=== PATIENT | male | born 1945 | race Caucasian/White ===

== ENCOUNTER 2016-10-08 14:56 | Emergency (ER) | payer OTHER ==
--- NOTE | 2016-10-08 14:46 | DIAGNOSTIC IMAGING REPORT ---
PROCEDURE: XR CHEST 2 VIEW INDICATION: COUGH TECHNIQUE: PA and lateral views. COMPARISON: None. FINDINGS: Massive right pleural effusion with right to left shift of the mediastinum. The left lung is clear. Heart size is normal. IMPRESSION: 1. Massive right pleural effusion with right to left shift of the mediastinum. 2. Results were called to Dr. Gomes and Dr. Lawson
--- NOTE | 2016-10-08 19:07 | DIAGNOSTIC IMAGING REPORT ---
PROCEDURE: CT THORAX WITH CONTRAST INDICATION: Right pleural effusion. TECHNIQUE: 125 ml of Isovue 300 was injected intravenously and axial images were obtained of the chest with coronal and sagittal reformations. COMPARISON: Chest x-ray 10/08/2016. FINDINGS: Right lung collapse with minor aeration of the right lung centrally and pleural effusion filling the entire right hemithorax. Small left pleural calcifications. Left lung is clear. No adenopathy. Mild atherosclerosis of the aorta. Coronary atherosclerosis. Heart size is normal. Visualized upper abdomen is unremarkable. Moderate degenerative changes of the spine. IMPRESSION: 1. Large right pleural effusion with soft total collapse of the right lung. No obvious central mass. Recommend repeat CT scan following complete thoracentesis 2. Small calcified left pleural plaques raising the possibility of asbestosis. 3. Results discussed with Dr. Lawson
--- NOTE | 2016-10-08 20:38 | ED ORDER SUMMARY ---
..... Patient: AMANDA WALSH OrderSheet [facility] VisitID: [id number] [place] [address] 71y, M Registration Date/Time: 10/08/2016 ORDER SHEET Weight: 83.9 kg Allergies: No Known Drug Allergy GENERAL ORDERS: Chest 1V Urgent (15:10/08/2016 Calderon Tineo) (Ack 15:11 LMuller) (Cancelled: Verbal per Gcdpqnhuk15:14 LMuller) Thread Puller (Continuous) (Respiratory Distress) (15:10/08/2016 Calderon Tineo) (Ack 15:11 LMuller) (15:22 CHernandez R.N.) CBC w Diff Urgent (15:10/08/2016 Calderon Tineo) (Ack 15:11 LMuller) (15:22 Nitishnandez R.N.) CMP Urgent (15:10/08/2016 Calderon Tineo) (Ack 15:11 LMuller) (15:22 CHernandez R.N.) PT with INR Urgent (15:10/08/2016 Calderon Tineo) (Ack 15:11 LMuller) (15:22 Nitishnandez R.N.) PTT Urgent (15:10/08/2016 Calderon Tineo) (Ack 15:11 LMuller) (15:22 Nitishnandez R.N.) Troponin-I Urgent (15:10/08/2016 Calderon Tineo) (Ack 15:11 LMuller) (15:22 Nitishnandez R.N.) BNP Urgent (15:10/08/2016 Calderon Tineo) (Ack 15:11 LMuller) (15:22 Nitishnandez R.N.) Pulse oximeter (15:10/08/2016 Calderon Tineo) (Ack 15:11 LMuller) (15:22 CHernandez R.N.) Culture, Body Fluid (Body Fluid) (clear brown) (right thorax) Urgent (17:30 10/08/2016 Calderon Tineo) (17:32 LMuller) (Cancelled: Duplicate Order17:35 LMuller) Body Fluid Cell Count Urgent (17:31 10/08/2016 Calderon Tineo) (17:32 LMuller) (Cancelled: Duplicate Order17:35 LMuller) Body Fluid Glucose Urgent (17:10/08/2016 Calderon Tineo) (17:32 LMuller) (Cancelled: Duplicate Order17:35 LMuller) Body Fluid LDH Urgent (17:10/08/2016 Calderon Tineo) (17:32 LMuller) (Cancelled: Duplicate Order17:35 LMuller) Body Fluid Protein Urgent (17:31 10/08/2016 Calderon Tineo) (17:32 LMuller) (Cancelled: Duplicate Order17:35 LMuller) CT Thorax w Cont (No) (gfr > 60) Urgent (17:32 10/08/2016 Calderon Tineo) (Ack 17:36 LMuller) (18:51 MCampbell) - (fluid microscopy for crystals. right thorax body fluid. brown clear.) (17:34 10/08/2016 Calderon Tineo) (Cancelled: Verbal per Orxryupfc11:43 LMuller) - (body fluid choleterol and triglyceride level. once now. right pleural effusion) (20:03 10/08/2016 Calderon Tineo) - (cytology on thoracentesis, right) (20:41 10/08/2016 Calderon Tineo) MEDICATION ORDERS: IV FLUIDS: IV NS : initial bolus none -, then none - for X1 (NOW) (15:09 10/08/2016 Calderon Tineo) (Ack 15:22 Luis R.NRenee) (15:27 Luis R.NRenee) ORDER SHEET NOTES: [Electronically signed by Anirudh Lawson Dr. (02:26 10/15/2016)] [Electronically signed by Sho Messer R.N. (12:59 10/16/2016)] [Electronically locked/signed by Sho Messer R.N. (12:59 10/16/2016)]
--- NOTE | 2016-10-08 20:38 | ED NURSING NOTES ---
Clinical Report - Nurses [facility] [place] [address] 10/08/2016 14:57 Patient: AMANDA WALSH TRIAGE Triage time 15:05. Acuity: LEVEL 2. Chief Complaint: SHORTNESS OF BREATH and DIFFICULTY BREATHING. --15:16 Deshaun Goetz R.N. 15:04 10/08/16. BP: 140/84. HR: 87. RR: 25. O2 saturation: 98%. Temp: 98.2 F. Pain level now: 0/10. --15:16 Deshaun Goetz R.N. Weight: 83.9 kg. Height/Length: 73 inches. BMI: 24.4. --15:15 Deshaun Goetz R.N. Medications TORO. --15:09 Deshaun Goetz R.N. Tamsulosin HCl Oral. --15:10 Deshaun Goetz R.N. ProAir HFA Inhalation. --15:10 Deshaun Goetz R.N. Albuterol Sulfate HFA Inhalation. --15:10 Deshaun Goetz R.N. Medication/allergy information source: the patient. --15:16 Deshaun Goetz R.N. Allergies No Known Drug Allergy. --15:08 Deshaun Goetz R.N. History Historian: patient. ( Increasing SOB, denies chest pain. Productive cough with yellow sputum in the last month. Went to see his PCP today and was sent to ER for CXR.). Onset. (months ago). He has had a cough productive of scant amounts of yellow sputum (months ago). Treatment MATH INSTRUCTOR: (INHALER). SURGERY HX: Right lower extremity fracture repair. SOCIAL HX: Smoker- current status unknown. Occasional alcohol use; consumes one beer occasionally. No infectious disease exposure. --15:16 Deshaun Goetz R.N. Arrived by private vehicle. --16:03 Deshaun Goetz R.N. PROBLEMS: Prostate Cancer. --15:12 Deshaun Goetz R.N. Interventions ID band on patient. To room. --15:16 Deshaun Goetz R.N. PHYSICAL ASSESSMENT Ambulatory to room. GENERAL / NEURO / PSYCH: Alert. Oriented X 4. Appears in no acute distress. HEENT: Mucous membranes are pink. RESPIRATORY: Moderate respiratory distress. The patient can speak in full sentences. Mild intercostal accessory muscle use. Cough productive of scant amounts of yellow sputum. Chest nontender. Decreased breath sounds in the right lung base anteriorly and posteriorly and mid-lung anteriorly and posteriorly. CVS: Normal sinus rhythm noted. Capillary refill less than 2 seconds. GI / : Abdomen soft and nontender. Bowel sounds within normal limits. SKIN: Skin is warm and dry. Normal skin turgor. --15:19 Deshaun Goetz R.N. NURSING PROGRESS NOTES 15:16 10/08/2016 Site #1 started via IV in the left antecubital space with an 18g angiocath; one attempt. Blood drawn: dick set. Saline lock flushed with 10 mL saline. --15:21 Deshaun Goetz R.N. plate straightener, pulse oximeter and NIBP monitor placed on patient; exhibition organiser- Lead II; monitor alarms on. Patient ID band checked: patient confirmed. Blood samples drawn from the left antecubital space with Vacutainer 18g by nurse: dick set: blood culture. Line flushed with 10 mL normal saline post blood draw. Patient gowned. Head of bed elevated. Reassurance given to the patient. Patient ID band checked for patient name and birthdate: patient confirmed. Instructions provided to collect clean catch urine and patient verbalized understanding urine collected with return of yellow-colored raquel-colored urine; sample sent to lab for urinalysis. Specimen labeled in the presence of the patient. Patient identifiers checked. Call light placed in reach. Side rails up x 1. Bed placed in lowest position. Brakes of bed on. Patient ready for evaluation- chart flagged and ED physician notified. --15:21 Deshaun Goetz R.N. 15:27 10/08/2016 Started IV Fluids IV NS (Saline); at 1000 mL/hr over 1 hour(s) via site #1 via IV pump. Allergies verified and confirmed 5 rights. IV patency established. IV site checked: no pain, redness, or swelling. IV flushed thoroughly pre- and post-medication administration. --15:27 Deshaun Goetz R.N. RESPIRATORY: The patient reports difficulty breathing that is moderate in severity. Decreased breath sounds in the right lung base anteriorly and posteriorly and mid-lung anteriorly and posteriorly. CVS: Normal sinus rhythm noted. SKIN: Skin is warm and dry. Skin color within normal limits. --16:01 Deshaun Goetz R.N. 16:00 10/08/16. BP: 142/81. HR: 82. RR: 26. O2 saturation: 95%. Pain level now: 0/10. --16:01 Deshaun Goetz R.N. 16:28 10/08/2016 IV Fluids IV NS Discontinued: bag #1 infused. Total amount infused: 1000 mL. IV patency established. IV site checked: no pain, redness, or swelling. IV flushed thoroughly. --16:28 Deshaun Goetz R.N. Cardiac rhythm: normal sinus rhythm. Reassessment after procedure (thoracentecis). He is calm and resting quietly. RESPIRATORY: Mild respiratory distress present. No respiratory distress. Decreased breath sounds in the right lung base anteriorly and posteriorly and mid-lung anteriorly and posteriorly. CVS: Normal sinus rhythm noted. SKIN: Skin is warm. Skin color within normal limits. --17:40 Deshaun Goetz R.N. 17:37 10/08/16. BP: 128/86. HR: 84. RR: 24. O2 saturation: 96%. Pain level now: 0/10. --17:40 Deshaun Goetz R.N. 17:10. ( Patient sitting on the side of the bed for procedure - thoracentesis with Dr. Lawson). RESPIRATORY: No respiratory distress. CVS: Normal sinus rhythm noted. SKIN: Skin is warm. Skin color within normal limits. --17:42 Deshaun Goetz R.N. 18:00. The patient is calm and resting quietly. ( Patient sitting on the side of the bed, in no distress and denies pain. Waiting for CT scan). RESPIRATORY: No respiratory distress. Breath sounds normal. SKIN: Skin is warm and dry. --18:37 Deshaun Goetz R.N. 18:00 10/08/16. BP: 137/87. HR: 78. RR: 16. O2 saturation: 98% on room air. --18:37 Deshaun Goetz R.N. Reassessment after procedure (CT SCAN). ( Patient to CT scan via stretcher, respiration is easy and regular.). RESPIRATORY: No respiratory distress. Decreased breath sounds in the right lung base posteriorly and mid-lung posteriorly. CVS: Normal sinus rhythm noted. SKIN: Skin is warm and dry. Skin color within normal limits. --18:39 Deshaun Goetz R.N. 18:39 10/08/16. BP: 143/88. HR: 76. RR: 16. O2 saturation: 96%. Pain level now: 0/10. --18:39 Deshaun Goetz R.N. The patient reports no complaints and he is calm and resting quietly. Overall patient status is improved- he states feels better. RESPIRATORY: No respiratory distress. CVS: Normal sinus rhythm noted. SKIN: Skin is warm and dry. Skin color within normal limits. --19:39 Deshaun Goetz R.N. 19:37 10/08/16. BP: 138/85. HR: 84. RR: 16. O2 saturation: 100%. Pain level now: 0/10. --19:39 Deshaun Goetz R.N. DISPOSITION / DISCHARGE 20:55 10/08/2016 Site #1 removed upon discharge. Catheter intact. Pressure dressing applied. --20:55 Mery Allen Departure time: 20:56. Condition at departure: improved. No learning barriers present. Discharge instructions provided and reviewed with the patient. Reviewed referral to a charcoal kiln burner. Patient verbalized understanding. Written instructions provided in Malian. No warning instructions, medication instructions, treatment instructions, diet instructions or activity restrictions. No note given or stop smoking instructions. The patient was discharged by the physician. He was discharged home and accompanied by family. He left the Emergency Department ambulatory and via private vehicle. Family member driving. --20:56 Mery Allen 20:55 10/08/16. BP: 139/81. HR: 72. RR: 18. O2 saturation: 98%. Temp: deferred. Pain level now: 0/10. --20:56 Mery Allen Locked/Released at 10/16/2016 12:59 by Sho Messer R.N.
--- NOTE | 2016-10-08 20:38 | ED CLINICAL REPORT ---
Clinical Report - Physicians/Mid Levels [facility] [address] [place] [address] 10/08/2016 14:57 Patient: AMANDA WALSH Time Seen: 1505. Arrived- By private vehicle. Historian- patient. HISTORY OF PRESENT ILLNESS Chief Complaint: DYSPNEA. This started past several months and is still present and worsening. It was gradual in onset and has been intermittent and waxing/waning but is not gone now. The dyspnea is described as moderate and is worsened by exertion and is improved by rest. The patient has had sputum production and a cough. No chest pain. (told to go to the ED from clinic). Similar symptoms previously: None. Recent medical care: The patient was seen recently in a clinic. REVIEW OF SYSTEMS All systems otherwise negative, except as recorded above. PAST HISTORY See nurses notes. Medications: Albuterol Sulfate HFA Inhalation. ProAir HFA Inhalation. Tamsulosin HCl Oral. TORO. Allergies: No Known Drug Allergy. SOCIAL HISTORY Never smoker. No alcohol use or drug use. No recent travel. Is a local resident. ADDITIONAL NOTES The nursing notes have been reviewed. PHYSICAL EXAM Vital Signs: 10/08/2016 15:04 BP: 140/84. HR: 87. RR: 25. O2 saturation: 98%. Temp: 98.2 F. Pain level now: 0/10. Blood pressure normal. Tachypneic. Oxygen saturation normal. Appearance: Alert. No acute distress. Eyes: Pupils equal, round and reactive to light. Eyes normal inspection. ENT: Ears normal. Nose normal. Pharynx normal. Uvula midline. Neck: Normal inspection. No jugular venous distention. Neck supple. CVS: Normal heart rate and rhythm. Heart sounds normal. Pulses normal. Respiratory: No respiratory distress. (decreased breath sounds on the right. Positive egophony on the right. Positive whisper pectoriloquy on the right). Abdomen: Soft and nontender. No organomegaly. Back: Normal inspection. No CVA tenderness. Skin: Skin warm and dry. Normal skin color. No rash. Normal skin turgor. Extremities: Extremities exhibit normal ROM. No lower extremity edema. Neuro: Oriented X 3. No motor deficit. LABS, X-RAYS, AND EKG Chest CT: (PROCEDURE: CT THORAX WITH CONTRAST INDICATION: Right pleural effusion. TECHNIQUE: 125 ml of Isovue 300 was injected intravenously and axial images were obtained of the chest with coronal and sagittal reformations. COMPARISON: Chest x-ray 10/08/2016. FINDINGS: Right lung collapse with minor aeration of the right lung centrally and pleural effusion filling the entire right hemithorax. Small left pleural calcifications. Left lung is clear. No adenopathy. Mild atherosclerosis of the aorta. Coronary atherosclerosis. Heart size is normal. Visualized upper abdomen is unremarkable. Moderate degenerative changes of the spine. IMPRESSION: 1. Large right pleural effusion with soft total collapse of the right lung. No obvious central mass. Recommend repeat CT scan following complete thoracentesis 2. Small calcified left pleural plaques raising the possibility of asbestosis.). The study was independently viewed by me and interpreted by the radiologist. The study was discussed with the radiologist (via phone and pacs). Laboratory Tests: CBC w Diff: (DILIP: 10/08/2016 15:15) ( [facility] [place]/08[place] 15:38) Final results Test Result Flag Units (Reference) WHITE BLOOD COUNT 6.1 K/uL (4.5-11.5) RED BLOOD COUNT 4.30 L M/uL (4.50-5.90) HEMOGLOBIN 11.4 L gm/dL (13.5-17.5) HEMATOCRIT 35.0 L % (41.0-53.0) MEAN CELL VOLUME 82 fL (80-100) MEAN CORPUSCULAR HGB 27 pg (26-34) MEAN CORPUSCULAR HGB CONC 33 g/dL (31-37) RED CELL DISTRIBUTION WIDTH 16.1 H % (11.6-14.8) PLATELET COUNT 356 K/uL (150-400) NEUTROPHIL % 65.8 % (50-75) LYMPH % 17.1 L % (25-40) MONO % 13.5 % (3-14) EOSINOPHIL % 2.7 % (0-4) BASOPHIL % 0.9 % (0-2) PT with INR: (DILIP: 10/08/2016 15:15) ( [facility] 10/08/2016 15:50) Final results Test Result Flag Units (Reference) INR 0.9 (0.8-1.2) Low Intensity Therapy: INR 1.5-2.0 PT range 18.5-23.1Mod.Intensity Therapy: INR 2.0-3.0 PT range 23.1-31.5High Intensity Therapy: INR 2.5-3.5 PT range 27.4-35.5High Intensity Therapy 2: INR 3.0-4.0 PT range 31.5-39.3 APTT 38 H SECONDS (24-34) BNP: (DILIP: 10/08/2016 15:15) ( [facility] 10/08/2016 16:00) Final results Test Result Flag Units (Reference) B-TYPE NATRIURETIC PEPTIDE 35.8 pg/ml (5-100) CMP: (DILIP: 10/08/2016 15:15) ( [facility] 10/08/2016 15:56) Final results Test Result Flag Units (Reference) GLUCOSE 80 mg/dL (70-110) BUN 9 mg/dL (7-18) CREATININE 0.8 mg/dL (0.6-1.3) Estimated GFR >60 mL/min Estimated GFR- >60 mL/min Note: Persistent reduction over 3 months in eGFR<60 mL/min/1.73 m2 defines CKD. Patients with eGFR values>=60 mL/min/1.73 m2 may also have CKD if evidence ofpersistent proteinuria. Additional information may be foundat www.kidney.org. SODIUM 129 L mmol/L (136-145) POTASSIUM 4.2 mmol/L (3.5-5.1) CHLORIDE 92 L mmol/L (98-107) CARBON DIOXIDE 28 mmol/L (21-32) CALCIUM 8.5 mg/dL (8.5-10.1) TOTAL PROTEIN 7.6 g/dL (6.4-8.2) ALBUMIN 3.2 L g/dL (3.3-5.0) BILIRUBIN, TOTAL 0.8 mg/dL (0.0-1.0) ALKALINE PHOSPHATASE 100 U/L (46-116) AST (SGOT) 20 U/L (15-37) ALT (SGPT) 32 U/L (12-78) TROPONIN I <0.05 L ng/mL (0.00-1.5) TROPONIN REFERENCE RANGE:<0.1 NEGATIVE0.1-1.5 INDETERMINANT>1.5 POSITIVE Body Fluid Glucose: (DILIP: 10/08/2016 17:25) ( [facility] 10/08/2016 19:51) Final results Test Result Flag Units (Reference) BODY FLUID GLUCOSE 58 mg/dL No normal reference values established. BODY FLUID PROTEIN 4.6 g/dl BODY FLUID LDH 343 IU/L No normal reference values established. BODY FLUID TYPE PERITONEAL BF APPEARANCE CLOUDY (CLEAR) BF COLOR BROWN BODY FLUID WBC 3600 WBC/mm3 BODY FLUID RBC 73801 RBC/mm3 BODY FLUID SEGMENTED NEUTS 6 % BODY FLUID MONONUCLEAR CELLS 94 % Culture, Body Fluid: (DILIP: 10/08/2016 17:25) ( O[facility]cv[facility] 10/08/2016 20:13) IP SPECIMEN DESCRIPTION: PARATINAL FLUID Test Result Flag Units (Reference) GRAM STAIN, BODY FLUID DATE: 10/08/16 EPITHELIAL CELLS: NONE NO ORGANISMS SEEN: NO ORGANISMS SEEN WHITE BLOOD CELLS: 2+ . PROGRESS AND PROCEDURES Thoracentesis: Explained procedure's risk, benefits and alternatives. Discussed possible complications including pneumothorax, hemothorax, hemorrhage, vasovagal reaction, infection, pulmonary edema, laceration to solid organ, subcutaneous emphysema and air embolism. Explained procedure's risks, benefits, and alternatives to the patient. Possible complications discussed. Prep done with Betadine. Local anesthesia provided using 1% lidocaine. The procedure was performed with the patient sitting upright. Sterile technique used. Landmarks identified; right posterior approach taken. Pleural fluid aspirated using 8Fr catheter. Amount fluid obtained: brown and clear/turbid. Fluid sent for cell count, protein, glucose, LDH, culture and sensitivity, gram stain. Bandage applied. No complications. No bleeding. Estimated blood loss: < 1 cc. 1.6 L removed. Course of Care: PROCEDURE: XR CHEST 2 VIEW INDICATION: COUGH TECHNIQUE: PA and lateral views. COMPARISON: None. FINDINGS: Massive right pleural effusion with right to left shift of the mediastinum. The left lung is clear. Heart size is normal. IMPRESSION: 1. Massive right pleural effusion with right to left shift of the mediastinum. The patient is a pleasant 71-year-old male presenting for evaluation of shortness of breath. Patient has a large pleural effusion noted on the patient's right. Potential causes for the patient's pleural effusion includes malignant versus infectious etiology. Patient is reportedly having an abnormal PSA testing from his primary care doctor. Otherwise patient has no other sources for the abnormalpleural effusion. Patient reports gradual onset of the shortness of breath. Do not feel patient has pulmonary embolism or acute myocardial infarction. Chest x-ray from the clinic was reviewed by me. Patient is noted to have a midline shift of the mediastinum. Patient however does not have any signs of hemodynamic instability at this time. Had a discussion with the patient in regards to management of the large pleural effusion. Patient is agreeable to bedside thoracentesis for cell count and evaluation with laboratory studies as well as therapeutic relief. Had a discussion the patient in regards to the amount of fluid able to be drawn from the chest cavity and about 1.5 L can be obtained safely however do not feel comfortable with the drying more than thatsecondary to developing of pulmonary edema. wworkup was significant for the findings above. No signs of infectious pleural fluid. Patient with improved symptoms of dyspnea after drainage. Had a long discussion patient in regards to need of future treatments for the pleural fluid. Patient still has a large amount of fluid left on the hemithorax. Had a discussion with the patient in regards his workup here in the emergency department including diagnosis, home care, follow-up, and return precautions. All questions have been answered. The patient expressed understanding of these instructions and was agreeable to them. Disposition: Discharged. Condition: good. CLINICAL IMPRESSION 10/08/2016 19:37 BP: 138/85. HR: 84. RR: 16. O2 saturation: 100%. Pain level now: 0/10. Acute dyspnea Blood pressure normal. Oxygen saturation normal. Large right pleural effusion (symptomatic). INSTRUCTIONS Warnings: GENERAL WARNINGS: Return or contact your physician immediately if your condition worsens or changes unexpectedly, if not improving as expected, or if other problems arise. SPECIFICALLY, return if you develop chest pain, fever, productive cough, difficulty breathing, excessive fatigue, a fluttering sensation in the chest or fainting. Your Current Medications: CONTINUE TAKING THE FOLLOWING MEDICATIONS: Albuterol Sulfate HFA Inhalation. ProAir HFA Inhalation. TORO*. Tamsulosin HCl Oral. Follow-up: Return to the emergency department as needed. Follow up with your doctor tomorrow. Call for an appointment. Reason for referral: recheck today's concerns. Summary of care provided to patient via paper. Screening today revealed the patient's blood pressure to be in the normal range. The patient should follow up with a primary care provider for blood pressure management. Understanding of the discharge instructions verbalized by patient. (Electronically signed by Anirudh Lawson Dr. 10/15/2016 2:26)
--- NOTE | 2016-10-08 20:38 | ED NURSING NOTES ---
Clinical Report - Nurses [facility] [place] [address] 10/08/2016 14:57 Patient: AMANDA WALSH TRIAGE Triage time 15:05. Acuity: LEVEL 2. Chief Complaint: SHORTNESS OF BREATH and DIFFICULTY BREATHING. --15:16 Deshaun Goetz R.N. 15:04 10/08/16. BP: 140/84. HR: 87. RR: 25. O2 saturation: 98%. Temp: 98.2 F. Pain level now: 0/10. --15:16 Deshaun Goetz R.N. Weight: 83.9 kg. Height/Length: 73 inches. BMI: 24.4. --15:15 Deshaun Goetz R.N. Medications TORO. --15:09 Deshaun Goetz R.N. Tamsulosin HCl Oral. --15:10 Deshaun Goetz R.N. ProAir HFA Inhalation. --15:10 Deshaun Goetz R.N. Albuterol Sulfate HFA Inhalation. --15:10 Deshaun Goetz R.N. Medication/allergy information source: the patient. --15:16 Deshaun Goetz R.N. Allergies No Known Drug Allergy. --15:08 Deshaun Goetz R.N. History Historian: patient. ( Increasing SOB, denies chest pain. Productive cough with yellow sputum in the last month. Went to see his PCP today and was sent to ER for CXR.). Onset. (months ago). He has had a cough productive of scant amounts of yellow sputum (months ago). Treatment TEMPORARY STAFF ACCOUNTANT: (INHALER). SURGERY HX: Right lower extremity fracture repair. SOCIAL HX: Smoker- current status unknown. Occasional alcohol use; consumes one beer occasionally. No infectious disease exposure. --15:16 Deshaun Goetz R.N. Arrived by private vehicle. --16:03 Deshaun Goetz R.N. PROBLEMS: Prostate Cancer. --15:12 Deshaun Goetz R.N. Interventions ID band on patient. To room. --15:16 Deshaun Goetz R.N. PHYSICAL ASSESSMENT Ambulatory to room. GENERAL / NEURO / PSYCH: Alert. Oriented X 4. Appears in no acute distress. HEENT: Mucous membranes are pink. RESPIRATORY: Moderate respiratory distress. The patient can speak in full sentences. Mild intercostal accessory muscle use. Cough productive of scant amounts of yellow sputum. Chest nontender. Decreased breath sounds in the right lung base anteriorly and posteriorly and mid-lung anteriorly and posteriorly. CVS: Normal sinus rhythm noted. Capillary refill less than 2 seconds. GI / : Abdomen soft and nontender. Bowel sounds within normal limits. SKIN: Skin is warm and dry. Normal skin turgor. --15:19 Deshaun Goetz R.N. NURSING PROGRESS NOTES 15:16 10/08/2016 Site #1 started via IV in the left antecubital space with an 18g angiocath; one attempt. Blood drawn: dick set. Saline lock flushed with 10 mL saline. --15:21 Deshaun Goetz R.N. quality assurance monitor, pulse oximeter and NIBP monitor placed on patient; quality assurance monitor chassis- Lead II; monitor alarms on. Patient ID band checked: patient confirmed. Blood samples drawn from the left antecubital space with Vacutainer 18g by nurse: dick set: blood culture. Line flushed with 10 mL normal saline post blood draw. Patient gowned. Head of bed elevated. Reassurance given to the patient. Patient ID band checked for patient name and birthdate: patient confirmed. Instructions provided to collect clean catch urine and patient verbalized understanding urine collected with return of yellow-colored raquel-colored urine; sample sent to lab for urinalysis. Specimen labeled in the presence of the patient. Patient identifiers checked. Call light placed in reach. Side rails up x 1. Bed placed in lowest position. Brakes of bed on. Patient ready for evaluation- chart flagged and ED physician notified. --15:21 Deshaun Goetz R.N. 15:27 10/08/2016 Started IV Fluids IV NS (Saline); at 1000 mL/hr over 1 hour(s) via site #1 via IV pump. Allergies verified and confirmed 5 rights. IV patency established. IV site checked: no pain, redness, or swelling. IV flushed thoroughly pre- and post-medication administration. --15:27 Deshaun Goetz R.N. RESPIRATORY: The patient reports difficulty breathing that is moderate in severity. Decreased breath sounds in the right lung base anteriorly and posteriorly and mid-lung anteriorly and posteriorly. CVS: Normal sinus rhythm noted. SKIN: Skin is warm and dry. Skin color within normal limits. --16:01 Deshaun Goetz R.N. 16:00 10/08/16. BP: 142/81. HR: 82. RR: 26. O2 saturation: 95%. Pain level now: 0/10. --16:01 Deshaun Goetz R.N. 16:28 10/08/2016 IV Fluids IV NS Discontinued: bag #1 infused. Total amount infused: 1000 mL. IV patency established. IV site checked: no pain, redness, or swelling. IV flushed thoroughly. --16:28 Deshaun Goetz R.N. Cardiac rhythm: normal sinus rhythm. Reassessment after procedure (thoracentecis). He is calm and resting quietly. RESPIRATORY: Mild respiratory distress present. No respiratory distress. Decreased breath sounds in the right lung base anteriorly and posteriorly and mid-lung anteriorly and posteriorly. CVS: Normal sinus rhythm noted. SKIN: Skin is warm. Skin color within normal limits. --17:40 Deshaun Goetz R.N. 17:37 10/08/16. BP: 128/86. HR: 84. RR: 24. O2 saturation: 96%. Pain level now: 0/10. --17:40 Deshaun Goetz R.N. 17:10. ( Patient sitting on the side of the bed for procedure - thoracentesis with Dr. Lawson). RESPIRATORY: No respiratory distress. CVS: Normal sinus rhythm noted. SKIN: Skin is warm. Skin color within normal limits. --17:42 Deshaun Goetz R.N. 18:00. The patient is calm and resting quietly. ( Patient sitting on the side of the bed, in no distress and denies pain. Waiting for CT scan). RESPIRATORY: No respiratory distress. Breath sounds normal. SKIN: Skin is warm and dry. --18:37 Deshaun Goetz R.N. 18:00 10/08/16. BP: 137/87. HR: 78. RR: 16. O2 saturation: 98% on room air. --18:37 Deshaun Goetz R.N. Reassessment after procedure (CT SCAN). ( Patient to CT scan via stretcher, respiration is easy and regular.). RESPIRATORY: No respiratory distress. Decreased breath sounds in the right lung base posteriorly and mid-lung posteriorly. CVS: Normal sinus rhythm noted. SKIN: Skin is warm and dry. Skin color within normal limits. --18:39 Deshaun Goetz R.N. 18:39 10/08/16. BP: 143/88. HR: 76. RR: 16. O2 saturation: 96%. Pain level now: 0/10. --18:39 Deshaun Goetz R.N. The patient reports no complaints and he is calm and resting quietly. Overall patient status is improved- he states feels better. RESPIRATORY: No respiratory distress. CVS: Normal sinus rhythm noted. SKIN: Skin is warm and dry. Skin color within normal limits. --19:39 Deshaun Goetz R.N. 19:37 10/08/16. BP: 138/85. HR: 84. RR: 16. O2 saturation: 100%. Pain level now: 0/10. --19:39 Deshaun Goetz R.N. DISPOSITION / DISCHARGE 20:55 10/08/2016 Site #1 removed upon discharge. Catheter intact. Pressure dressing applied. --20:55 Mery Allen Departure time: 20:56. Condition at departure: improved. No learning barriers present. Discharge instructions provided and reviewed with the patient. Reviewed referral to a hand singer. Patient verbalized understanding. Written instructions provided in Swedish. No warning instructions, medication instructions, treatment instructions, diet instructions or activity restrictions. No note given or stop smoking instructions. The patient was discharged by the physician. He was discharged home and accompanied by family. He left the Emergency Department ambulatory and via private vehicle. Family member driving. --20:56 Mery Allen 20:55 10/08/16. BP: 139/81. HR: 72. RR: 18. O2 saturation: 98%. Temp: deferred. Pain level now: 0/10. --20:56 Mery Allen Locked/Released at 10/16/2016 12:59 by Sho Messer R.N.
--- NOTE | 2016-10-08 20:38 | ED ORDER SUMMARY ---
..... Patient: AMANDA WALSH OrderSheet [facility] VisitID: [id number] [place] [address] 71y, M Registration Date/Time: 10/08/2016 ORDER SHEET Weight: 83.9 kg Allergies: No Known Drug Allergy GENERAL ORDERS: Chest 1V Urgent (15:10/08/2016 Calderon Tineo) (Ack 15:11 LMuller) (Cancelled: Verbal per [id number] LMuller) Machinist/Machine Builder (Continuous) (Respiratory Distress) (15:10/08/2016 Calderon Tineo) (Ack 15:11 LMuller) (15:22 CHernandez R.N.) CBC w Diff Urgent (15:10/08/2016 Calderon Tineo) (Ack 15:11 LMuller) (15:22 Nitishnandez R.N.) CMP Urgent (15:10/08/2016 Calderon Tineo) (Ack 15:11 LMuller) (15:22 CHernandez R.N.) PT with INR Urgent (15:10/08/2016 Calderon Tineo) (Ack 15:11 LMuller) (15:22 Nitishnandez R.N.) PTT Urgent (15:10/08/2016 Calderon Tineo) (Ack 15:11 LMuller) (15:22 Nitishnandez R.N.) Troponin-I Urgent (15:10/08/2016 Calderon Tineo) (Ack 15:11 LMuller) (15:22 Nitishnandez R.N.) BNP Urgent (15:10/08/2016 Calderon Tineo) (Ack 15:11 LMuller) (15:22 Nitishnandez R.N.) Pulse oximeter (15:10/08/2016 Calderon Tineo) (Ack 15:11 LMuller) (15:22 CHernandez R.N.) Culture, Body Fluid (Body Fluid) (clear brown) (right thorax) Urgent (17:30 10/08/2016 Calderon Tineo) (17:32 LMuller) (Cancelled: Duplicate Order17:35 LMuller) Body Fluid Cell Count Urgent (17:31 10/08/2016 Calderon Tineo) (17:32 LMuller) (Cancelled: Duplicate Order17:35 LMuller) Body Fluid Glucose Urgent (17:10/08/2016 Calderon Tineo) (17:32 LMuller) (Cancelled: Duplicate Order17:35 LMuller) Body Fluid LDH Urgent (17:10/08/2016 Calderon Tineo) (17:32 LMuller) (Cancelled: Duplicate Order17:35 LMuller) Body Fluid Protein Urgent (17:31 10/08/2016 Calderon Tineo) (17:32 LMuller) (Cancelled: Duplicate Order17:35 LMuller) CT Thorax w Cont (No) (gfr > 60) Urgent (17:32 10/08/2016 Calderon Tineo) (Ack 17:36 LMuller) (18:51 MCampbell) - (fluid microscopy for crystals. right thorax body fluid. brown clear.) (17:34 10/08/2016 Calderon Tineo) (Cancelled: Verbal per Xwislphje45:[id number] LMuller) - (body fluid choleterol and triglyceride level. once now. right pleural effusion) (20:03 10/08/2016 Calderon Tineo) - (cytology on thoracentesis, right) (20:41 10/08/2016 Calderon Tineo) MEDICATION ORDERS: IV FLUIDS: IV NS : initial bolus none -, then none - for X1 (NOW) (15:09 10/08/2016 Calderon Tineo) (Ack 15:22 Luis R.NRenee) (15:27 Luis R.NRenee) ORDER SHEET NOTES: [Electronically signed by Anirudh Lawson Dr. (02:26 10/15/2016)] [Electronically signed by Sho Messer R.N. (12:59 10/16/2016)] [Electronically locked/signed by Sho Messer R.N. (12:59 10/16/2016)]
--- NOTE | 2016-10-16 12:59 | ED DISCHARGE INSTRUCTIONS ---
Patient: AMANDA WALSH General Instructions [facility] VisitID: [id number] [place] [address] 71y, M Registration Date/Time: 10/08/2016 10/08/2016 19:37 BP: 138/85. HR: 84. RR: 16. O2 saturation: 100%. Pain level now: 0/10. Acute dyspnea Blood pressure normal. Oxygen saturation normal. Large right pleural effusion (symptomatic). INSTRUCTIONS Warnings: GENERAL WARNINGS: Return or contact your physician immediately if your condition worsens or changes unexpectedly, if not improving as expected, or if other problems arise. SPECIFICALLY, return if you develop chest pain, fever, productive cough, difficulty breathing, excessive fatigue, a fluttering sensation in the chest or fainting. Your Current Medications: CONTINUE TAKING THE FOLLOWING MEDICATIONS: Albuterol Sulfate HFA Inhalation. ProAir HFA Inhalation. TORO*. Tamsulosin HCl Oral. Follow-up: Return to the emergency department as needed. Follow up with your doctor tomorrow. Call for an appointment. Reason for referral: recheck today's concerns. Summary of care provided to patient via paper. Screening today revealed the patient's blood pressure to be in the normal range. The patient should follow up with a primary care provider for blood pressure management. Understanding of the discharge instructions verbalized by patient. ADDITIONAL INFORMATION Pleural Effusion The pleura is a smooth double membrane that surrounds the lungs and separatesthem from the chest wall. One side of the pleura attaches to the lung, the other to the chest wall. This membrane makes it easier for the chest to inflate and deflate as you breathe without rubbing against the ribs. There is normally a small amount of lubricating fluid between the pleural membranes (pleural fluid). A pleural effusion is when an excess amount of fluid collects in the space between the two pleural membranes (pleural space). As the amount of fluid increases, it begins to press on the lung, making it harder to take a full breath. There are two types of pleural effusion: Inflammatorycaused by a lung disease that irritates the pleura, such as pneumonia or lung cancer. Non-inflammatorycaused by abnormal fluid pressures inside the lungs, such as congestive heart failure (also called CHF,where excess fluid collects inside the lung tissues due to a weakened heart muscle, then leaks into the pleural space). Pleural effusion may cause any of the following symptoms: Shortness of breath Rapid breathing Cough or hiccups Sharp chest pain that hurts more with coughing or deep breathing A small pleural effusion may cause no symptoms at all. Treatment will be directed at the cause of the pleural effusion. If you are having a lot of trouble breathing, a thoracentesis procedure may be performed to remove the fluid from the pleural space. This usually gives immediate relief, although the fluid may gradually return. Home Care: Exertion may make your symptoms worse, so rest until you are feeling better. If medicines were prescribed to treat the underlying cause of the pleural effusion, take these exactly as directed. Follow Up with your doctor or as advised by our staff. Return Promptly or contact your doctor if any of the following occur: Increasing shortness of breath Increasing chest pain Coughing up blood Weakness, dizziness, or fainting Fever over 100.4F (38.0C) Dyspnea (Shortness Of Breath) Shortness of Breath (also known as "Dyspnea") is the sense that you can't catch your breath or can't get enough air. Dyspnea can be caused by many different conditions such as: Acute asthma attack Worsening of emphysema (also called "COPD") -- a lung diseasethat is caused by smoking A mucus plug blocks a large air passage in the lung -- this can occur with emphysema or chronic bronchitis Congestive Heart Failure ("CHF") -- when a weak heart muscle allows excess fluid to collect inthe lungs Panic attacks, anxiety -- fear can cause rapid breathing ("hyperventilation") Pneumonia -- infection in the lung tissue Exposure to toxic fumes or smoke Pulmonary embolus (blood clot to the lung) Based on your visit today, the exact cause of your shortness of breath is not certain. Your tests do not show any of the serious causes of dyspnea. Sometimes, further testing is needed to find out if a serious problem exists. Therefore, it is important for you to watch for any new symptoms or worsening of your condition and follow up with your doctor as directed. Home Care: When your symptoms are better, resume your usual activities. If you smoke, you need to stop. Join a stop-smoking program or ask your doctor for help. Follow Up with your doctor or as advised by our staff. Get Prompt Medical Attention if any of the following occur: Increasing shortness of breath or wheezing Redness, pain or swelling in one leg Swelling in both legs or ankles Unexpected weight gain Chest, arm, shoulder, neck or upper back pain Dizziness, weakness or fainting Palpitations (the sense that your heart is fluttering, beating fast or hard) Fever of 100.4F (38C) or higher, or as directed by your healthcare provider Cough with dark colored or bloody sputum (mucus) You have been given the following additional information: Pleural Effusion Dyspnea (Electronically signed by Anirudh Lawson Dr. 10/15/2016 2:26)
--- NOTE | 2016-10-16 12:59 | ED MAR SUMMARY ---
..... Medication Administration Record [facility] [address] [place] [address] Patient: AMANDA WALSH Visit ID: [id number] 71y, M Weight: 83.9 kg Height/Length: 73 in BMI: 24.4 ALLERGIES: No Known Drug Allergy Start 15:27 10/08/2016 Deshaun Goetz R.N., Stop 16:28 10/08/2016 Deshaun Goetz R.N. Medication Administered: IV NS (SALINE), Dose: IV Fluids over 1 hour(s), Rate: 1000 mL/hr, Site: #1 left AC. Medication Ordered: IV NS : initial bolus none -, then none - for X1 (NOW).
--- NOTE | 2016-10-16 12:59 | ED MED RECONCILIATION SUMMARY ---
Patient: AMANDA WALSH Medication Reconciliation Report [facility] VisitID: [id number] [address] [place] [address] 71y, M Registration Date/Time: 10/08/2016 Weight: 83.9 kg Height/Length: 73 in. BMI: 24.4 ALLERGIES: No Known Drug Allergy The patient's Home Medications are listed below: CONTINUE TAKING THE FOLLOWING MEDICATIONS: Albuterol Sulfate HFA Inhalation ProAir HFA Inhalation TORO Tamsulosin HCl Oral The source(s) of the original Home Medication information: patient The following Medications were given to the patient in the Emergency Department: IV NS IV Fluids bolus 0, then 1000 mL/hr, administered: 10/08/2016 3:27:00 PM The following Medications were prescribed to the patient: None.
--- NOTE | 2016-10-16 12:59 | ED MAR SUMMARY ---
..... Medication Administration Record [address] [place] [address] Patient: AMANDA WALSH Visit ID: [id number] 71y, M Weight: 83.9 kg Height/Length: 73 in BMI: 24.4 ALLERGIES: No Known Drug Allergy Start 15:27 10/08/2016 Deshaun Goetz R.N., Stop 16:28 10/08/2016 Deshaun Goetz R.N. Medication Administered: IV NS (SALINE), Dose: IV Fluids over 1 hour(s), Rate: 1000 mL/hr, Site: #1 left AC. Medication Ordered: IV NS : initial bolus none -, then none - for X1 (NOW).
--- NOTE | 2016-10-16 12:59 | ED MED RECONCILIATION SUMMARY ---
Patient: AMANDA WALSH Medication Reconciliation Report [facility] VisitID: [id number] [address] [place] [address] 71y, M Registration Date/Time: 10/08/2016 Weight: 83.9 kg Height/Length: 73 in. BMI: 24.4 ALLERGIES: No Known Drug Allergy The patient's Home Medications are listed below: CONTINUE TAKING THE FOLLOWING MEDICATIONS: Albuterol Sulfate HFA Inhalation ProAir HFA Inhalation TORO Tamsulosin HCl Oral The source(s) of the original Home Medication information: patient The following Medications were given to the patient in the Emergency Department: IV NS IV Fluids bolus 0, then 1000 mL/hr, administered: 10/08/2016 3:27:00 PM The following Medications were prescribed to the patient: None.
== END 2016-10-08 20:55 | disposition home or self-care (01) ==
LOC: EDSTATUS 14:56 → ED SRH 14:58
PROC: 0W993ZZ Drainage of Right Pleural Cavity, Percutaneous Approach (ICD-10-PCS; principal; 2016-10-08)
DX: J90 Pleural effusion, not elsewhere classified (principal); R06.00 Dyspnea, unspecified; Z85.46 Personal history of malignant neoplasm of prostate; Z79.899 Other long term (current) drug therapy
CPT/HCPCS: 83704; 90100; 90133; 90309; 90470; 90616; 90733; 91320; 92060; 92061; 92070; 92653; 94001; 94060; 95029; 95030; 95059

== ENCOUNTER 2016-10-19 13:50 | Outpatient (CLI) | payer OTHER ==
--- NOTE | 2016-10-19 16:24 | DIAGNOSTIC IMAGING REPORT ---
PROCEDURE: US THORACENTESIS WO TUBE-RIGHT INDICATION: Recurrent right pleural with shortness of breath. Recent SANTOSH thoracentesis (10/08/2016, 1500 ml). COMPARISON: Comparison made to chest x-ray earlier today (10/19/2016) TECHNIQUE: Informed consent was obtained and the patient was advised of the usual risks and complications including infection, bleeding, allergy and pneumothorax. Upright position. Following sterile preparation and 1% lidocaine local anesthetic, ultrasound guidance was utilized to place a 16-gauge angiocatheter in the right posterolateral thorax. 2000 ml of brownish cloudy fluid was aspirated. Samples were sent in for laboratory studies (Gram stain culture, cell count differential, protein, glucose, LDH, AFB stain culture, fungal stain culture, cytology). The patient tolerated the procedure well and was discharged home in satisfactory condition with instructions to call me for any untoward symptoms (chest pain, shortness of breath). IMPRESSION: 1. Successful ultrasound-guided diagnostic/therapeutic thoracentesis (2000 ml fluid). 2. Laboratory studies are pending. 3. The patient is minimally scheduled for follow-up chest x-ray and thoracentesis on Saturday10/26/2016. 4. Findings discussed with RADHA Arreaga.
--- NOTE | 2016-10-19 17:12 | DIAGNOSTIC IMAGING REPORT ---
PROCEDURE: XR CHEST 2 VIEW INDICATION: Assess pleural effusion. Prior thoracentesis on 10/08/2016. TECHNIQUE: PA and lateral views. COMPARISON: Compared to chest x-ray on 10/08/2016. FINDINGS: There is a large recurrent right pleural effusion with complete opacification of the right hemithorax. However, midline shift has resolved. Left lung is clear. Heart and mediastinum are normal. Mild degenerative changes of the thoracic spine. IMPRESSION: 1. Large recurrent right pleural effusion.
== END 2016-10-19 23:00 ==
LOC: US SRH 13:50
PROC: 0W993ZZ Drainage of Right Pleural Cavity, Percutaneous Approach (ICD-10-PCS; principal; 2016-10-19)
PROC: BB4BZZZ Ultrasonography of Pleura (ICD-10-PCS; 2016-10-19)
DX: J90 Pleural effusion, not elsewhere classified (principal)

== ENCOUNTER 2016-10-26 13:48 | Outpatient (CLI) | payer OTHER ==
--- NOTE | 2016-10-26 16:33 | DIAGNOSTIC IMAGING REPORT ---
PROCEDURE: XR CHEST 1 VIEW INDICATION: RIGHT PLUERAL EFFUSION TECHNIQUE: Single view chest. 1356 hours COMPARISON: 10/19/2016 and 10/08/2016 FINDINGS: The left cardiac border suggests normal sized heart. Normal aortic contour. Rightward tracheal shift, new compared to the prior studies where there was a midline shift, and more remotely, left tracheal shift. Small amount of right perihilar lung is aerated. There is otherwise whiteout of the right hemithorax. Left lung is fully aerated. No central venous congestion. Intact osseous structures. IMPRESSION: 1. Large right pleural effusion with near complete opacification of the right chest but overall volume loss of the right hemithorax compared to the prior study.
--- NOTE | 2016-10-26 16:41 | DIAGNOSTIC IMAGING REPORT ---
PROCEDURE: US THORACENTESIS WO TUBE-RIGHT INDICATION: RIGHT PLEURAL EFFUSION TECHNIQUE: Written informed consent was obtained from the patient prior to the procedure. Risks discussed included but were not limited to bleeding, infection, injury to adjacent structures, pain, pneumothorax and allergic reaction. It was agreed to proceed. Seated position on the ultrasound gurney. Preliminary sonographic imaging demonstrated a large right pleural effusion. An appropriate skin entry site was chosen and marked. The skin was prepped and draped in the usual sterile fashion. Skin and subcutaneous tissue was anesthetized thoroughly with 1% lidocaine. A 5-Nepalese centesis catheter was inserted into the right pleural space. Small amount of air was withdrawn into the catheter following stylet removal. Approximately 1550 ml of yellowish brown fluid was drawn off. 1200 ml was sent to the lab for cytology. The patient began to complain of some chest discomfort and the procedure was terminated. The catheter was removed, hemostasis was achieved, the skin was cleansed, and a sterile bandage was applied. The patient complained of slight chest pain, and further cough, new compared to prior procedures. A PA chest x-ray was obtained demonstrating a small right apical pneumothorax. He was placed on 4 liters of oxygen by nasal cannula and observed in the Department for 1 hour. A follow-up chest x-ray was obtained demonstrating no increase in size of small right pneumothorax. The patient's oxygen was removed and the patient felt considerably improved. The patient left the radiology department in improved condition with standard post procedure instructions. COMPARISON: 10/08/2016, 10/19/2016. FINDINGS: 1550 ml yellowish brown right pleural fluid withdrawn. Small right upper lobe pneumothorax, stable following the procedure. IMPRESSION: 1. Successful ultrasound guided therapeutic right thoracentesis complicated by a small intraprocedural pneumothorax 2. Cytology is pending. 3. The patient stabilized after 1 hour of 4 liters 02 by nasal cannula and left the department in improved condition.
--- NOTE | 2016-10-26 16:43 | DIAGNOSTIC IMAGING REPORT ---
PROCEDURE: XR CHEST 1 VIEW INDICATION: POST THORACENTESIS TECHNIQUE: Single view chest. 1505 hours COMPARISON: 1456 hours FINDINGS: Development of small right apical pneumothorax amidst moderate to large size residual right pleural effusion. There has been improved aeration of some portions of the right lung. There is persistent rightward tracheal shift. IMPRESSION: 1. Development of small right pleural effusion post thoracentesis. 2. The patient placed on 4 liters O2 by nasal cannula and observed in the Department 1 hour.
--- NOTE | 2016-10-26 16:44 | DIAGNOSTIC IMAGING REPORT ---
PROCEDURE: XR CHEST 1 VIEW INDICATION: POST thoracentesis TECHNIQUE: Single view chest. 1610 hours COMPARISON: 1505 hours FINDINGS: No change to small right apical pneumothorax. Aerated portion of the right lung and residual large right pleural effusion are stable. Tracheal shift is unchanged. IMPRESSION: 1. No change to the right hemithorax including small right apical pneumothorax. 2. Patient condition considerably improved. Discharged without oxygen.
== END 2016-10-26 23:00 | disposition home or self-care (01) ==
LOC: XR SRH 13:48
PROC: 0W993ZZ Drainage of Right Pleural Cavity, Percutaneous Approach (ICD-10-PCS; principal; 2016-10-26)
PROC: BB4BZZZ Ultrasonography of Pleura (ICD-10-PCS; 2016-10-26)
DX: J90 Pleural effusion, not elsewhere classified (principal)